=== PATIENT | female | born 1985 | race Two or more races ===

== ENCOUNTER 2020-05-06 15:59 | Observation (INO) | payer SELFPAY ==
[~2020-05-06] VITALS: Ht 172.7 cm; Wt 95.3 kg
[2020-05-06] MEDS ORDERED: TERBUTALINE SULFATE 1 MG/ML 1ML VIAL SC SCH (17:00)
[2020-05-06] MEDS ORDERED: NIFEdipine 10 MG CAP ONE (17:51)
[2020-05-06] MEDS ORDERED: NIFEdipine 10 MG CAP PO ONE (18:00)
[2020-05-06] MEDS ORDERED: PRENTAB40 OR (19:00)
[2020-05-06] MEDS ORDERED: ASPI81CH43 GT (19:03)
[2020-05-06] MEDS ORDERED: MAGN64TA5 PO (19:04)
== END 2020-05-06 19:15 | disposition home or self-care (01) ==
LOC: LDRP 15:59
PROVIDERS: ADMIT Obstetrics & Gynecology; ATTEND Obstetrics & Gynecology
DX: O62.9 Abnormality of forces of labor, unspecified (principal); Z3A.20 20 weeks gestation of pregnancy
CPT/HCPCS: 59025; 76805; 81002; 94760; 96372; G0378; J3105